=== PATIENT | male | born 1980 | race Caucasian/White ===

== ENCOUNTER 2016-08-19 16:35 | Emergency (ER) | payer OTHER ==
--- NOTE | 2016-08-19 16:58 | PHYS DOC ---
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 Patient states that earlier today while working he was clearing out a cell and accidentally cut the tip of his right index finger on a used razor blade. The razor blade was dry it is unknown whether the cell occupant had any communicable diseases. Patient states the abrasion was very small and hardly broke the skin, he is requesting no treatment for it but was sent here by his employer for labs. He is uncertain of his tetanus status is we will update that today. No other complaints. Onset: this afternoon Severity: mild Pain/Injury Location: right 2nd finger Method of Injury: incised Modifying Factors: improves with other Allergies: Coded Allergies: No Known Drug Allergies (Unverified , 08/19/16) Past Medical History Medical History: no pertinent history Surgical History: noncontributory Social History Smoker: chew Alcohol: none Drugs: none Review of Systems Constitutional: denies chills, denies fever Respiratory: denies cough, denies shortness of breath Cardiovascular: denies chest pain, denies palpitations Gastrointestinal: denies nausea, denies vomiting Musculoskeletal: denies back pain, denies joint swelling, denies neck pain Skin: see HPI Physical Exam General Appearance: WD/WN, no apparent distress Neck: full range of motion, supple Cardiovascular/Respiratory: normal peripheral pulses, no respiratory distress Hand: normal ROM, abrasions (very superficial approximately 1.5 cm abrasion at the lateral aspect of the distal phalanx of the right second digit. There is no erythema no swelling no discharge the area is nontender and scabbed. Ligaments and tendons appear to be intact the extremity is neurovascularly intact.) Neurologic/Tendon: normal sensation, normal motor functions, normal tendon functions, responds to pain, no evidence tendon injury Psychiatric: alert, oriented x 3 Skin: normal color, warm/dry (right index finger as above) Orders, Labs, Meds Labs drawn patient refuses post exposure prophylaxis it was not recommended as he was low risk. He states he knows to follow-up with his employer for results and expresses agreement and understanding of the discharge plan. Departure Time of Disposition: 16:59 Disposition: 01 HOME, SELF-CARE Diagnosis: body fluid exposure, finger abrasion Condition: GOOD Patient Instructions: Abrasion, [id number], Body Fluid Exposure Additional Instructions: Keep wound covered with sterile dressing until healed. Wash wound twice daily with soap and warm water, blot dry. Change dressing and applied triple antibiotic ointment each time you wash the wound. Follow-up with a doctor in 3-5 days for wound check as needed. Follow-up with your employer regarding your lab results and further management. Return to the ED with new or changing symptoms. KENROY DIAZ DO Aug 19, 2016 16:58
[2016-08-19 17:40] VITALS: BP 139/93
[2016-08-19 17:41] LABS: BASO # 0.1 x10^3/uL (0.0-0.2); BASO % 1 % (0-3); EOS # 0.1 x10^3/uL (0.0-0.7); EOS % 1 % (0-3); HEMATOCRIT 41.8 % (39.0-53.0); HEMOGLOBIN 14.3 g/dL (13.0-17.5); LYMPH % 26 % (24-48); MEAN CORPUSCULAR HEMOGLOBIN 32 pg (25-35); MEAN CORPUSCULAR HGB CONC 34 g/dL (31-37); MEAN CORPUSCULAR VOLUME 95 fL (79-100); MONO # 0.3 x10^3/uL (0.0-1.1); MONO % 4 % (0-9); NEUT # 5.2 x10^3uL (1.8-7.7); NEUT % 68 % (31-73); PLATELET COUNT 164 x10^3/uL (140-400); RED BLOOD COUNT 4.42 x10^6/uL (4.30-5.70); RED CELL DISTRIBUTION WIDTH 13.1 % (11.5-14.5); WHITE BLOOD COUNT 7.6 x10^3/uL (4.0-11.0)
[2016-08-19 17:55] LABS: ALBUMIN 4.2 g/dL (3.4-5.0); ALBUMIN/GLOBULIN RATIO 1.1 (1.0-1.7); CALCIUM 9.1 mg/dL (8.5-10.1); GFR 84.1; TOTAL BILIRUBIN 0.5 mg/dL (0.2-1.0); TOTAL PROTEIN 7.9 g/dL (6.4-8.2)
[2016-08-19 17:56] LABS: POTASSIUM 3.9 mmol/L (3.5-5.1)
[2016-08-20 03:15] LABS: HCV ANTIBODY <0.1 s/co ratio (0.0-0.9); HEP A IGM ABDY Negative (Negative)
== END 2016-08-19 17:40 | disposition home or self-care (01) ==
LOC: ER 16:35
DX: Z77.21 Contact with and (suspected) exposure to potentially hazardous body fluids (principal); S60.410A Abrasion of right index finger, initial encounter; F17.220 Nicotine dependence, chewing tobacco, uncomplicated; W45.8XXA Other foreign body or object entering through skin, initial encounter; Y93.89 Activity, other specified; Y99.8 Other external cause status; Y92.89 Other specified places as the place of occurrence of the external cause
CPT/HCPCS: 36415; 80053; 80074; 85027; 86703; 86704; 99284